=== PATIENT | female | born 2000 | race Caucasian/White ===

== ENCOUNTER 2024-02-29 10:52 | Emergency (ER) | payer OTHER, SELFPAY ==
[2024-02-29 10:54] VITALS: BP 114/96
[2024-02-29 11:08] VITALS: BP 104/71
[2024-02-29 11:25] VITALS: BMI 32.1
--- NOTE | 2024-02-29 11:59 | ED.GENMED ---
History of Present Illness
General
Chief Complaint: Headache
Time Seen by Provider: 02/29/24 11:05
History of Present Illness
History of Present Illness:
23yoF hx ocular migraines presenting with bilateral frontal headache for the past 1 week. Pt states she started control 6 weeks ago and initially thought headache was due to control, so she discussed with OBGYN who advised to
discontinue. Pt states she stopped control with no relief. Pt states she has history of ocular migraines which typically present as posterior headache, and this headache feels different. Pt states she was seen at urgent care on 02/23 where she
had negative blood work, covid, strep, and mono. Pt states she developed chills 2 nights ago and a fever Tmax 103 yesterday prompting her to return to urgent care who recommended to come to the ER for further evaluation. Pt states she has neck pain.
Pt denies numbness, weakness, tingling, or visual changes. Pt states she received childhood vaccines. pt denies any known sick contacts or recent travel. Pt states headache improves with motrin/tylenol, but continues to always be constant. Pt states
she wakes up in the middle of the night and in the morning with the headache, states it waxes and wanes but is always present.
Phy Exam
Physical Exam
Physical Exam:
General: Alert, no acute distress, well appearing
Head: NCAT.
Eyes: clear conjunctiva, PERRLA, EOMI
Neck: supple. FROM. negative Brudzinski
Cardiac: regular rate and rhythm, no murmur
Lungs: clear to auscultation bilaterally. No wheezes, rales, or rhonchi. Speaking full unlabored sentences. No respiratory distress.
Abdomen: soft, nondistended nontender. No rebound or guarding.
MSK: no lower extremity edema bilaterally. No deformity
Skin: warm, dry, no rash
Neuro: Alert and oriented x3. CN II-XII grossly intact with no focal deficit. Normal finger to nose and heel to chapman. No pronator drift. No slurred speech
Course
Orders/Labs/Results
Orders:
Orders
02/29/24 11:57
CT Head W/o Iv Contrast Urgent
Comment:
Reason For Exam: headache
Prochlorperazine [Compazine] 10 mg IV NOW STA
Test Result ONCE
02/29/24 11:58
0.9% Sodium Chloride 1000 ml [Nss] 1,000 ml IV BOLUS
02/29/24 12:03
CBC/With Diff [Complete Blood Count/With Diff] Urgent
CMP [Comprehensive Metabolic Panel] Urgent
COVID-19 Antigen Urgent
Source: Nasal Swab
HCG, Serum Qualitative Screen Urgent
Comment: ADD ON
Influenza A+B Rapid Molecular Urgent
LESLIE Source: Nasal Swab
Specimen Description:
02/29/24 12:27
Add On- LAB Urgent
Tests Added?: Serum HCG qualitative
02/29/24 12:39
Acetaminophen [Tylenol] 1,000 mg PO NOW STA
Abnormal Lab Results
02/29/24
12:03
MCH 31.7 H pg
(27.0-31.0)
Monocytes % 9.7 H %
(1.7-9.3)
Glucose 100 H mg/dl
(70-99)
02/29/24 12:03
02/29/24 12:03
Vital Signs
Initial and Last Documented VS:
Initial Vital Signs
Temp Pulse Resp BP Pulse Ox
98.3 F 78 16 114/96 98
02/29/24 10:54 02/29/24 10:54 02/29/24 10:54 02/29/24 10:54 02/29/24 10:54
Last Documented Vital Signs
Temp Pulse Resp BP Pulse Ox
99.3 F 78 17 124/85 99
02/29/24 12:30 02/29/24 13:00 02/29/24 13:00 02/29/24 13:00 02/29/24 13:00
MDM/Problems Addressed
Differential Diagnosis Includes:
migraine, viral syndrome, mass. Low suspicion for meningitis
MDM/Problems Addressed:
23yoF hx ocular migraines presenting with constant frontal headache for the past 1 week with neck pain and fever that started yesterday. Pt states feels different from previous migraines. No known sick contacts. Pt well appearing, neurologically
intact, FROM neck. Afebrile here in ER. Discussed possibility of meningitis with patient and mother at bedside, offered LP to confirm that not meningitis. Pt declines. Low suspicion for meningitis given well appearing, FROM neck, negative
Brudzinski, headache for the past 1 week. Higher suspicion for viral syndrome. Given pt states headache has been constant for the past 1 week and feels different from typical migraines, will obtain CT head to assess for mass, hemorrhage, etc. Will
obtain labs, test for covid/flu, give migraine cocktail, reassess
Workup reviewed, WBC 6.1 no left shift or bandemia. Covid/flu negative. CT head shows No intracranial abnormalities. Acute left maxillary sinusitis. As read by radiology.
On reevaluation, patient states headache has resolved. No tenderness to palpation over maxillary sinuses bilaterally. Pt denies any nasal congestion or tooth pain. Given headache and symptoms <10 days, will hold on antibiotics for sinusitis at this
time. Advised to use Flonase/nasal decongestions/neti pot. Advised to continue using tylenol/motrin as needed for aches. Advised to follow up with primary care doctor for recheck. Discussed return precautions. Patient and mother expressed verbal
understanding.
*Critical Care Note
Total Time (30-74mins, 75-104mins- exclusive of procedures): Not Applicable
ED Attending Note
-
Portions of this chart may have been created with voice recognition software.� Occasional wrong word or��sound alike� substitutions may have occurred due to the inherent limitations of voice recognition software.
Discharge Plan
Departure
Patient Disposition: Home (Routine Discharge)
Date of Disposition: 02/29/24
Time of Disposition: 14:03
Patient with high blood pressure during this ER visit?: No
Discharge Problem:
Headache, Acute sinusitis
Referrals:
Carlyle Conway MD [Family Provider] -
Activity Restrictions/Additional Instructions:
Take tylenol 975mg every 6 hours and/or ibuprofen 800mg every 8 hours with food as needed for headaches
Use lidocaine patch as needed for aches
Use flonase and nasal decongestants daily
Follow up with primary care doctor in 1-2 days
Return to the emergency department for numbness, weakness, tingling, altered mental status or new/worsening symptoms
Interventions
Interventions:
*Risk Screen - Suicide Last Done: 02/29/24 11:28
*General Assessment Last Done: 02/29/24 11:26
*Neglect/Abuse Screening Last Done: 02/29/24 11:26
*Nursing Disposition Last Done: 02/29/24 14:40
ED- Neurological Assessment Last Done: 02/29/24 11:26
Discharge Date and Time
Discharge Date/Time: 02/29/24 14:41
Print Language: SYRIAN
[2024-02-29 12:00] VITALS: BP 112/83
[2024-02-29] MEDS: NSS 1000 IV (12:04)
[2024-02-29] MEDS: COMPAZINE 10 MG IV (12:04)
[2024-02-29 12:34] LABS: % Basophils 0.8 % (0-2); % Eosinophils 1.8 % (0-6); % Immature Granulocytes 0.3 % (0-0.5); % Lymphocytes 24.2 % (20.5-51.1); % Monocytes 9.7 % (1.7-9.3); % Neutrophils 63.2 % (42.2-75.2); Absolute Basophils 0.1 10^3/uL (0-0.2); Absolute Eosinophils 0.1 10^3/uL (0-0.7); Absolute Lymphocytes 1.5 10^3/uL (1.2-3.4); Absolute Monocytes 0.6 10^3/uL (0.1-0.6); Absolute Neutrophils 3.8 10^3/uL (1.4-6.5); Hematocrit 39.1 % (37.0-47.0); Hemoglobin 13.9 g/dL (12.0-16.0); Mean Corp Hgb Conc. 35.5 g/dL (33.0-37.0); Mean Corpuscular Hgb 31.7 pg (27.0-31.0); Mean Corpuscular Volume 89.3 fL (81.0-99.0); Mean Platelet Volume 10.3 fL (7.4-10.4); Nucleated Red Blood Cells % 0 %; Platelet Count 314 10^3/uL (130-400); Red Blood Cell Count 4.38 10^6/uL (4.20-5.40); Red Cell Dist. Width 12.1 % (11.5-14.5); White Blood Cell Count 6.1 10^3/uL (4.8-10.8)
[2024-02-29 12:43] LABS: ALT (SGPT) 13 U/L (0-35); AST (SGOT) 19 U/L (14-36); Albumin 4.7 g/dl (3.5-5.0); Alkaline Phosphatase 44 U/L (38-126); Blood Urea Nitrogen 8 mg/dl (7-17); Calcium 9.6 mg/dl (8.4-10.2); Carbon Dioxide 23 mmol/L (22-30); Chloride 101 mmol/L (98-107); Estimated Creatinine Clearance 100 ml/min; Glucose 100 mg/dl (70-99); HCG, Serum Qualitative Screen Negative; Potassium 3.7 mmol/L (3.5-5.1); Sodium 140 mmol/L (135-145); Total Bilirubin 0.7 mg/dl (0.2-1.3); Total Protein 7.7 g/dl (6.3-8.2); eGFR > 60.00
[2024-02-29] MEDS: TYLENOL 1000 MG PO (12:43)
[2024-02-29 12:57] LABS: COVID-19 Antigen Negative (Negative)
[2024-02-29 13:00] VITALS: BP 124/85
== END 2024-02-29 14:41 | disposition home or self-care (01) ==
LOC: EMR 10:52
PROVIDERS: EMERGENCY PHYSICIAN Emergency Medicine; FAMILY PHYSICIAN Internal Medicine
DX: R51.9 Headache, unspecified (principal); J01.00 Acute maxillary sinusitis, unspecified; M54.2 Cervicalgia; Z11.52 Encounter for screening for COVID-19
CPT/HCPCS: 99284; 96374; 96361; 70450; 80053; 84703; 85025; 87502; 87811